=== PATIENT | female | born 1980 | race African-American/Black ===

== ENCOUNTER 2017-02-18 20:45 | Emergency (ER) | payer OTHER ==
[~2017-02-18] VITALS: Ht 157.5 cm; Wt 71.7 kg
[2017-02-19 00:41] VITALS: BP 120/70
[2017-02-19] MEDS ORDERED: KETOROLAC TROMETH 60MG/2ML VIAL IM ONE (01:00)
== END 2017-02-19 01:44 | disposition home or self-care (01) ==
LOC: EDBD 20:48 → ER 20:48
DX: M54.31 Sciatica, right side (principal); E11.9 Type 2 diabetes mellitus without complications; E07.89 Other specified disorders of thyroid
CPT/HCPCS: 72100; 96372; 99284; J1885

== ENCOUNTER 2017-02-19 12:27 | Emergency (ER) | payer OTHER ==
[~2017-02-19] VITALS: Ht 157.5 cm; Wt 71.7 kg
[2017-02-19 13:47] VITALS: BP 101/68
== END 2017-02-19 14:27 | disposition home or self-care (01) ==
LOC: ER 12:36
DX: G89.29 Other chronic pain (principal); M54.5 Low back pain; E11.9 Type 2 diabetes mellitus without complications; E07.89 Other specified disorders of thyroid; F17.210 Nicotine dependence, cigarettes, uncomplicated; Z76.0 Encounter for issue of repeat prescription

== ENCOUNTER 2017-05-07 06:46 | Emergency (ER) | payer MEDICAID, OTHER ==
[~2017-05-07] VITALS: Ht 157.5 cm; Wt 73.5 kg
[2017-05-07 07:04] VITALS: BP 128/79
[2017-05-07] MEDS ORDERED: KETOROLAC TROMETH 60MG/2ML VIAL IM ONE (08:00)
== END 2017-05-07 08:24 | disposition home or self-care (01) ==
LOC: ER 06:46
DX: M10.079 Idiopathic gout, unspecified ankle and foot (principal); E11.9 Type 2 diabetes mellitus without complications; E07.9 Disorder of thyroid, unspecified; F17.210 Nicotine dependence, cigarettes, uncomplicated
CPT/HCPCS: 73630; 96372; 99284; J1885

== ENCOUNTER 2018-11-12 16:51 | Emergency (ER) | payer MEDICAID, OTHER ==
[~2018-11-12] VITALS: Ht 157.5 cm; Wt 63.5 kg
[2018-11-12 17:06] VITALS: BP 124/80
== END 2018-11-12 23:45 | disposition home or self-care (01) ==
LOC: ER 16:51
DX: S61.412A Laceration without foreign body of left hand, initial encounter (principal); J06.9 Acute upper respiratory infection, unspecified; E11.9 Type 2 diabetes mellitus without complications; F17.210 Nicotine dependence, cigarettes, uncomplicated; W26.0XXA Contact with knife, initial encounter; Y93.89 Activity, other specified; Y99.8 Other external cause status; Y92.89 Other specified places as the place of occurrence of the external cause
CPT/HCPCS: 12001

== ENCOUNTER 2018-11-28 07:15 | Emergency (ER) | payer SELFPAY ==
[~2018-11-28] VITALS: Ht 157.5 cm; Wt 67.1 kg
[2018-11-28 07:54] VITALS: BP 135/80
== END 2018-11-28 08:33 | disposition home or self-care (01) ==
LOC: ER 07:15
DX: S61.512D Laceration without foreign body of left wrist, subsequent encounter (principal); E11.9 Type 2 diabetes mellitus without complications; E07.89 Other specified disorders of thyroid; X58.XXXD Exposure to other specified factors, subsequent encounter

== ENCOUNTER 2019-02-15 17:24 | Inpatient (IN) | payer SELFPAY ==
[~2019-02-15] VITALS: Ht 160 cm; Wt 68.5 kg
[2019-02-15] MEDS ORDERED: MORPHINE SULF INJ 2 MG/ML SYRINGE 1ML ONE (18:26)
[2019-02-15] MEDS ORDERED: ONDANSETRON HCL 4 MG/2 ML VIAL ONE (18:26)
[2019-02-15] MEDS ORDERED: SODIUM CHLORIDE 0.9% 1,000 ML IV ONE (18:30)
[2019-02-15] MEDS ORDERED: MORPHINE SULF INJ 2 MG/ML SYRINGE 1ML IV ONE ×2 (18:30→20:15)
[2019-02-15] MEDS ORDERED: ONDANSETRON HCL 4 MG/2 ML VIAL IV ONE (18:30)
[2019-02-15] MEDS ORDERED: SODIUM CHLORIDE 0.9% 500 ML IV ONE (19:06)
[2019-02-15 19:12] LABS: Basophils # (auto) 0.1 uL; Basophils % (auto) 0.3 % (0.0-2.0); Eosinophils # (auto) 0 uL; Hematocrit 41.9 % (36.0-46.0); Hemoglobin 14.1 g/dL (12.2-16.2); Lymphocytes # (auto) 1.1 uL; Lymphocytes % (auto) 5.2 % (10.0-50.0); Mean Corpuscular Hemoglobin 28.4 pg (28.0-32.0); Mean Corpuscular Hgb Conc. 33.5 g/dL (32.0-36.0); Mean Corpuscular Volume 84.7 fL (80.0-100.0); Monocytes # (auto) 1.9 uL; Neutrophils # (auto) 18.2 uL; Neutrophils % (auto) 85.5 % (37.0-80.0); Platelet Count (auto) 421 10^3/uL (140-450); Red Blood Cells 4.95 10^6/uL (4.0-5.20); Red Cell Distribution Width 13.3 % (11.8-14.3); White Blood Cell 21.3 10^3/uL (4.4-10.8)
[2019-02-15 19:18] LABS: Alanine Aminotransferase 16 U/L (13-56); Albumin 3.1 g/dL (3.4-5.0); Anion Gap 16 (5-15); Aspartate Aminotransferase 14 U/L (15-37); BUN/Creatinine Ratio 8.1; Blood Urea Nitrogen 24 mg/dL (7-18); Calcium 9.5 mg/dL (8.5-10.1); Carbon Dioxide 22 mmol/L (21-32); Chloride 96 mmol/L (98-107); GFR African American 22 mL/min; GFR Non-African American 19 mL/min; Glucose 107 mg/dL (74-106); Sodium 134 mmol/L (136-145)
[2019-02-15 19:19] LABS: Lactic Acid w/Reflex 4.5 mmol/L (0.4-2.0)
[2019-02-15 19:22] LABS: Alkaline Phosphatase 160 U/L (45-117); Bilirubin, Total 0.4 mg/dL (0.2-1.0); Total Protein 10.3 g/dL (6.4-8.2)
[2019-02-15] MEDS ORDERED: CLINDAMYCIN 600MG IV 50 ML IV ONE (19:45)
[2019-02-15] MEDS ORDERED: NEOMYCIN-BACITRACIN-POLYM 15GM TOP OINT TOP ONE (19:45)
[2019-02-15 20:18] LABS: Potassium 2.8 mmol/L (3.5-5.1)
[2019-02-15] MEDS ORDERED: POTASSIUM CHL 20 Meq TABLET PO ONE (20:30)
[2019-02-15] MEDS ORDERED: cefTRIAXone 1GM/50ML D5W 50 ML IV ONE (20:30)
[2019-02-15] MEDS: POTASSIUM CHL 20MEQ/100ML 100 ML IV SCH ×2 (21:27→23:03)
[2019-02-15 21:32] LABS: Urine Bacteria FEW /hpf (None Seen); Urine Blood 2+ /uL (Negative); Urine Specific Gravity 1.019 (1.001-1.035); Urine WBC 290 /hpf (0 - 5); Urine WBC Clumps PRESENT /hpf (None Seen)
[2019-02-15] MEDS ORDERED: DEXTROSE (50%) 50ML SYRG IV PRN (22:45)
[2019-02-15] MEDS ORDERED: ACETAMINOPHEN 325 MG TAB PO PRN (22:45)
[2019-02-15] MEDS: SODIUM CHLORIDE 0.9% 1,000 ML IV SCH (22:54)
[2019-02-15] MEDS: ONDANSETRON HCL 4 MG/2 ML VIAL IV PRN (23:17)
--- NOTE | 2019-02-15 23:25 | NUR ---
MS admit from ER [facility], A/ O x 4 admitted to [facility] after SBAR received, on room air with even and unlabored breathing, PIV patent and intact infusing 2nd bag of KCL to consume and discontinue. Patient oriented to Judith Ortega, primary RN, unit, room, bed, and unit policies regarding patient care and visiting hours. Patient weighed by bedscale and encouraged to call if she needs something. All questions and concerns addressed, patient verbalized understanding. Note:
[2019-02-16] VITALS (7 sets, daily range): BP systolic 99–110; BP diastolic 52–64
[2019-02-16] MEDS: ACCU-CHEK COMFORT CURVE STRIP VI SCH ×5 (00:15→23:17)
[2019-02-16] MEDS ORDERED: INSLANTI SC ×2 (00:39)
[2019-02-16] MEDS ORDERED: METF-370 PO (00:39)
[2019-02-16] MEDS: HYDROcodone-ACET 5/325MG TAB PO PRN ×4 (01:35→16:16)
--- NOTE | 2019-02-16 01:35 | NUR ---
C/O LEFT HAND PAIN, SCALE 10/10. NORCO 5 MG PO GIVEN ORDERED PRN.
[2019-02-16] MEDS: ONDANSETRON HCL 4 MG/2 ML VIAL IV PRN ×2 (03:41→12:00)
[2019-02-16] MEDS: InsuLIN REG 1unit/0.01ml Soln (100units/ml) SC SCH ×5 (06:00→23:16)
[2019-02-16 06:35] LABS: Basophils # (auto) 0.1 uL; Basophils % (auto) 0.3 % (0.0-2.0); Eosinophils # (auto) 0 uL; Eosinophils % (auto) 0.1 % (0.0-7.0); Hematocrit 34.7 % (36.0-46.0); Hemoglobin 11.4 g/dL (12.2-16.2); Lymphocytes # (auto) 0.8 uL; Lymphocytes % (auto) 4.5 % (10.0-50.0); Mean Corpuscular Hemoglobin 27.5 pg (28.0-32.0); Mean Corpuscular Hgb Conc. 32.8 g/dL (32.0-36.0); Mean Corpuscular Volume 83.8 fL (80.0-100.0); Monocytes # (auto) 1.8 uL; Monocytes % (auto) 10.3 % (0.0-12.0); Neutrophils % (auto) 84.8 % (37.0-80.0); Platelet Count (auto) 356 10^3/uL (140-450); Red Blood Cells 4.13 10^6/uL (4.0-5.20); White Blood Cell 17.7 10^3/uL (4.4-10.8)
[2019-02-16 06:41] LABS: BUN/Creatinine Ratio 11.5; Calcium 8.1 mg/dL (8.5-10.1); Potassium 3.9 mmol/L (3.5-5.1)
[2019-02-16] MEDS: CLINDAMYCIN 600MG IV 50 ML IV SCH ×3 (06:45→22:10)
[2019-02-16] MEDS: cefTRIAXone 1GM/50ML D5W 50 ML IV SCH (08:27)
[2019-02-16] MEDS: SODIUM CHLORIDE 0.9% 1,000 ML IV SCH ×2 (09:11→16:16)
[2019-02-16] MEDS ORDERED: NEOMYCIN-BACITRACIN-POLYM 15GM TOP OINT TOP SCH (10:00)
--- NOTE | 2019-02-16 19:10 | NUR ---
Opening Shift Note Assumed care of patient from day shift RN Isabel. Pt is asleep, respirations even equal and unlabored. No S/S of distress/SOB or pain. Safety maintained with bed rails upx2, locked and in lowest position with call plata within reach. Instructed on POC and to call for assist PRN, will continue to monitor for changes Q1hr and PRN.
--- NOTE | 2019-02-16 22:10 | NUR ---
COOLING MEASURES TEMP 100.4 F. REMOVED SOME BLANKETS FROM PATIENT, APPLIED ICE PACKS, ADMINISTERED PRN TYLENOL. NO S/S DISTRESS, WILL CONTINUE TO MONITOR.
--- NOTE | 2019-02-17 02:00 | NUR ---
PT FOUND WITH IV PULLED OUT Pt ambulated to bathroom, states "my IV just came out." Applied pressure to IV site and applied dressing, no bleeding noted. Catheter intact. No s/s distress. Addendum: 02/17/19 at 0208 by MANISHA JUAREZ RN RN RIGHT AC IV PULLED OUT. LEFT AC IV STILL INTACT AND PATENT.
[2019-02-17] MEDS: HYDROcodone-ACET 5/325MG TAB PO PRN ×3 (02:05→20:06)
--- NOTE | 2019-02-17 02:05 | NUR ---
Pt c/o burning when urinating Educated pt on importance of IV fluids and IV antibiotics to help with UTI which may be causing burning with urination. Pt verbalized understanding. Pt also complains of 10/10 hand pain, administered [place] PRN. No s/s distress, reassessment temp 98.4. Will continue to monitor.
[2019-02-17] MEDS: SODIUM CHLORIDE 0.9% 1,000 ML IV SCH (02:12)
[2019-02-17 05:42] VITALS: BP 126/68
[2019-02-17] MEDS: CLINDAMYCIN 600MG IV 50 ML IV SCH ×3 (05:45→22:01)
[2019-02-17] MEDS: ACCU-CHEK COMFORT CURVE STRIP VI SCH ×3 (05:45→17:59)
[2019-02-17] MEDS: InsuLIN REG 1unit/0.01ml Soln (100units/ml) SC SCH ×3 (05:45→17:59)
[2019-02-17 06:51] LABS: Basophils # (auto) 0.1 uL; Basophils % (auto) 0.7 % (0.0-2.0); Eosinophils # (auto) 0 uL; Eosinophils % (auto) 0.1 % (0.0-7.0); Hematocrit 31.3 % (36.0-46.0); Hemoglobin 10.3 g/dL (12.2-16.2); Lymphocytes # (auto) 1.8 uL; Lymphocytes % (auto) 9.5 % (10.0-50.0); Mean Corpuscular Hemoglobin 27.8 pg (28.0-32.0); Mean Corpuscular Hgb Conc. 32.9 g/dL (32.0-36.0); Mean Corpuscular Volume 84.4 fL (80.0-100.0); Monocytes # (auto) 2.7 uL; Monocytes % (auto) 14.1 % (0.0-12.0); Neutrophils # (auto) 14.2 uL; Neutrophils % (auto) 75.6 % (37.0-80.0); Platelet Count (auto) 349 10^3/uL (140-450); Red Blood Cells 3.71 10^6/uL (4.0-5.20); White Blood Cell 18.8 10^3/uL (4.4-10.8)
--- NOTE | 2019-02-17 07:15 | NUR ---
Closing Shift Note Endorsed care to day shift RN Summer. Pt resting in bed, no s/s distress.
--- NOTE | 2019-02-17 07:16 | NUR ---
Opening Note Received report from shift supervisor rn RN. Patient is awake, alert and oriented x4. No signs or symptoms of distress noted at this time. Patient is on room air, respirations even and unlabored. Reviewed plan of care with patient, patient verbalized understanding. Bed in low and locked position, call light within reach. Will continue to monitor Q1 hour and PRN.
[2019-02-17 07:20] LABS: Sodium 132 mmol/L (136-145)
[2019-02-17 07:21] LABS: Chloride 101 mmol/L (98-107)
[2019-02-17 07:22] LABS: Anion Gap 6 (5-15); BUN/Creatinine Ratio 17.3; Blood Urea Nitrogen 18 mg/dL (7-18); Carbon Dioxide 25 mmol/L (21-32); GFR African American 75 mL/min; GFR Non-African American 62 mL/min; Glucose 96 mg/dL (74-106)
[2019-02-17 07:23] LABS: Calcium 8.1 mg/dL (8.5-10.1); Cholesterol 113 mg/dL (< 200); HDL Cholesterol 19 mg/dL (40-59); LDL Cholesterol 67 mg/dL (< 100); Magnesium 1.9 mg/dL (1.6-2.6); Triglycerides 151 mg/dL (< 150)
[2019-02-17] MEDS: cefTRIAXone 1GM/50ML D5W 50 ML IV SCH (08:50)
--- NOTE | 2019-02-17 08:50 | NUR ---
AMA to Smoke AMA to Smoke signed by patient and placed in the chart.
[2019-02-17 09:00] VITALS: BP 110/62
--- NOTE | 2019-02-17 11:42 | NUR ---
IV REMOVED IV removed with clean sterile technique, catheter fully intact. Pressure dressing applied to site. Patient tolerated well.
--- NOTE | 2019-02-17 11:46 | NUR ---
IV INSERTION IV access obtained, via clean sterile technique by inserting 22 gauge catheter in right forearm after one attempt. IV secured properly. No trauma to site. Patient tolerated well.
--- NOTE | 2019-02-17 12:15 | NUR ---
Urine Sample Urine Sample collected and sent to lab
[2019-02-17 12:49] LABS: Protein, Urine 160.6 mg/dL (0.0-11.9)
[2019-02-17 12:51] LABS: Alcohol, Urine < 3.0 mg/dL (0-5); Amphetamine Screen, Urine NEGATIVE (NEGATIVE); Barbiturate Scree,Urine NEGATIVE (NEGATIVE); Benzodiazephine Screen, Urine NEGATIVE (NEGATIVE); Cannabinoid Screen, Urine POSITIVE (NEGATIVE); Cocaine Screen, Urine NEGATIVE (NEGATIVE); Opiate Scree,Urine POSITIVE (NEGATIVE); Phencyclidine Screen, Urine NEGATIVE (NEGATIVE)
[2019-02-17 13:00] VITALS: BP 118/79
[2019-02-17 17:00] VITALS: BP 137/87
--- NOTE | 2019-02-17 18:00 | NUR ---
Patient off unit Patient off unit, outside to smoke
--- NOTE | 2019-02-17 19:20 | NUR ---
Closing Note Report given to manufacturing supervisor 2nd shift. No signs or symptoms of distress noted at this time. Patient resting in bed with eyes closed.
[2019-02-17 22:00] VITALS: BP 136/74
[2019-02-17] MEDS: TEMAZEPAM 15 MG CAP PO PRN (22:06)
[2019-02-18] MEDS: HYDROcodone-ACET 5/325MG TAB PO PRN ×4 (00:16→19:32)
[2019-02-18] MEDS: ACCU-CHEK COMFORT CURVE STRIP VI SCH ×5 (00:21→23:41)
[2019-02-18] MEDS: InsuLIN REG 1unit/0.01ml Soln (100units/ml) SC SCH ×4 (00:21→18:00)
[2019-02-18 05:00] VITALS: BP 114/75
[2019-02-18] MEDS: CLINDAMYCIN 600MG IV 50 ML IV SCH ×3 (06:10→22:13)
[2019-02-18 06:20] LABS: Hematocrit 33.6 % (36.0-46.0); Hemoglobin 11.1 g/dL (12.2-16.2); Mean Corpuscular Hemoglobin 27.6 pg (28.0-32.0); Mean Corpuscular Hgb Conc. 32.9 g/dL (32.0-36.0); Mean Corpuscular Volume 83.8 fL (80.0-100.0); Platelet Count (auto) 389 10^3/uL (140-450); Red Blood Cells 4.01 10^6/uL (4.0-5.20); White Blood Cell 11.8 10^3/uL (4.4-10.8)
[2019-02-18 06:25] LABS: Basophils % (manual) 0 (0.0-2.0); Blast Cells 0; Metamyelocytes % 0; Myelocytes % 0; Promyelocytes % 0
[2019-02-18 06:35] LABS: Albumin 1.9 g/dL (3.4-5.0); Calcium 8.2 mg/dL (8.5-10.1)
[2019-02-18 06:38] LABS: BUN/Creatinine Ratio 16.7; Bilirubin, Total 0.2 mg/dL (0.2-1.0); Phosphorus 3.5 mg/dL (2.5-4.90); Total Protein 7.4 g/dL (6.4-8.2)
--- NOTE | 2019-02-18 06:44 | NUR ---
CLOSING NOTE: PATIENT'S BILATERAL HANDS AND LABIAL PAIN HAS IMPROVED PER PT. BLOOD SUGAR IS WNL THIS MORNING, AMBULATES WITHOUT DIFFICULTY, CURRENTLY ON IV ANTIBIOTICS.
--- NOTE | 2019-02-18 07:30 | NUR ---
Opening Shift Note Assumed care of patient, awake and alert. No S/S of distress/SOB or pain. Instructed on POC and to call for assist PRN, will continue to monitor for changes Q1hr and PRN. Patient states she's getting ready "to go outside" pt encouraged to stop smokinh but she refused. Cont care
[2019-02-18 08:00] LABS: Band Neutrophils % (manual) 1; Eosinophils % (manual) 1 (0-7); Lymphocytes % (manual) 11 (10.0-50.0); Monocytes % (manual) 11 (0-12); Reactive Lymphocytes 1
--- NOTE | 2019-02-18 08:22 | NUR ---
Patient back from smoking no distress noted
[2019-02-18 09:00] VITALS: BP 129/82
[2019-02-18] MEDS ORDERED: INSULIN LANTUS (GLARGINE) 1 /0.01ml (100units/ml) SC ONE (10:45)
[2019-02-18] MEDS: cefTRIAXone 1GM/50ML D5W 50 ML IV SCH (10:58)
--- NOTE | 2019-02-18 11:16 | NUR ---
Patient out to smoke encouraged to stay and quit smoking but refused. Patient aware of risks of going out to smoke including and not limited to . Patient accompanied by family member. No distress on departure noted.
[2019-02-18 13:00] VITALS: BP 143/81
[2019-02-18 17:00] VITALS: BP 116/65
--- NOTE | 2019-02-18 19:00 | NUR ---
PATIENT CARE ENDORSED ENDORSED CARE TO THELMA SCHNEIDER, PATIENT NOTED WALKING OUT TO SMOKE ACCOMPANIED BY FAMILY MEMBER. NO DISTRESS NOTED
[2019-02-18] MEDS: TEMAZEPAM 15 MG CAP PO PRN (19:32)
[2019-02-18 22:03] VITALS: BP 132/77
[2019-02-19] MEDS: InsuLIN REG 1unit/0.01ml Soln (100units/ml) SC SCH ×4 (00:12→17:44)
[2019-02-19 05:20] VITALS: BP 118/62
[2019-02-19] MEDS: CLINDAMYCIN 600MG IV 50 ML IV SCH ×3 (05:26→21:27)
[2019-02-19] MEDS: ACCU-CHEK COMFORT CURVE STRIP VI SCH ×3 (05:31→17:44)
--- NOTE | 2019-02-19 06:29 | NUR ---
CLOSING NOTE Patient still c/o bilateral hands and labial pain, given norco once the last 12 hours, slept well, on IV antibiotics, afebrile, ambulatory, blood sugar is 98 this morning.
[2019-02-19] MEDS: INSULIN LANTUS (GLARGINE) 1 /0.01ml (100units/ml) SC SCH (06:38)
[2019-02-19] MEDS: HYDROcodone-ACET 5/325MG TAB PO PRN ×4 (06:38→21:27)
[2019-02-19 09:00] VITALS: BP 120/70
--- NOTE | 2019-02-19 09:30 | NUR ---
patient off unit to smoke AMA to smoke in hard chart
[2019-02-19] MEDS: cefTRIAXone 1GM/50ML D5W 50 ML IV SCH (09:55)
[2019-02-19] MEDS: LISINOPRIL 5 MG TAB PO SCH (09:56)
--- NOTE | 2019-02-19 12:00 | NUR ---
patient off unit to smoke AMA to smoke in hard chart
--- NOTE | 2019-02-19 12:03 | NUR ---
Nutrition Assessment Notes please see attached link for complete assessment Est. Needs BW [id number] kcal (23-25 kcal/kgBW), 67-87 gms pro (1.0-1.3 gms/kgBW r/t severe hypoalb). Will continue to monitor pertinent labs and reassess nutrient need prn Addendum: 02/19/19 at [address] Amended: Links added.
[2019-02-19 13:00] VITALS: BP 126/70
--- NOTE | 2019-02-19 17:00 | NUR ---
patient off unit to smoke AMA to smoke in hard chart
--- NOTE | 2019-02-19 17:00 | NUR ---
PT WAS OUT OF THE ROOM FOR 1700 VITALS
--- NOTE | 2019-02-19 17:24 | NUR ---
Patient in tears, states 10/10 head pain after returning from smoking a cigarette. Blood glucose 151 Blood pressure 137/81 mmHG Heart rate 101 Patient able to smile without deficit observed, speech is clear, arms have equal strength bilaterally Paged Dr. Sierra to inform M.D of patient's condition Medicated patient with [facility] per EMAR/ [place] order
--- NOTE | 2019-02-19 17:41 | NUR ---
IV removal IV DC'd from right AC with clean sterile technique, catheter fully intact. Pressure dressing applied to site. Patient tolerated well.
--- NOTE | 2019-02-19 18:15 | NUR ---
IV insertion IV access obtained, via clean sterile technique by inserting 22 gauge catheter at NATALIE after 1 attempt. IV secured properly. No trauma to site. Patient tolerated well.
[2019-02-19] MEDS: TEMAZEPAM 15 MG CAP PO PRN (21:26)
[2019-02-19 22:03] VITALS: BP 133/75
[2019-02-20] MEDS: CLINDAMYCIN 600MG IV 50 ML IV SCH ×2 (05:11→14:28)
[2019-02-20] MEDS: InsuLIN REG 1unit/0.01ml Soln (100units/ml) SC SCH ×3 (05:11→11:59)
[2019-02-20] MEDS: ACCU-CHEK COMFORT CURVE STRIP VI SCH ×3 (05:11→11:59)
[2019-02-20 05:39] VITALS: BP 130/73
[2019-02-20] MEDS: INSULIN LANTUS (GLARGINE) 1 /0.01ml (100units/ml) SC SCH (06:45)
--- NOTE | 2019-02-20 07:45 | NUR ---
RECEIVED PATIENT ALERT AND ORIENTED X4, NOT IN DISTRESS, DEEP BREATHING AND COUGHING WAS ENCOURAGED, DEMONSTRATED AND TOLERATED WELL, CLEAR LUNG SOUNDS IN BILATERAL LUNG LOBES, RR=18 SAT=98% IN RA, HEART R=82, DENIED SOB AND CHEST PAIN, ABDOMEN SOFT WITH ACTIVE BS, LAST BM=01/19/19 REPORTED, C/O GENERALIZED WEAKNESS AND JOINT PAIN L=12/27 AT THIS MOMENT, SKIN INTACT WARM TO TOUCH, LT. LABIA WOUND IS HEALING REPORTED AND REFUSED ASSESSMENT AT THIS MOMENT, GENERAL SKIN DRY AND INTACT WARM TO TOUCH, RADIAL AND PEDAL PULSES PALPABLE, CAP REFILL <3 SECONDS, RESTING AND SLEEPING ON BED, HEAD OF BED ELEVATED, BED ON LOW POSITION, RAILS UP X2, CALL LIGHT ON REACH, WILL CONTINUE MONITORING.
[2019-02-20 08:33] VITALS: BP 110/58
[2019-02-20] MEDS: cefTRIAXone 1GM/50ML D5W 50 ML IV SCH (09:47)
[2019-02-20] MEDS: LISINOPRIL 5 MG TAB PO SCH (09:48)
[2019-02-20] MEDS: HYDROcodone-ACET 5/325MG TAB PO PRN (09:49)
[2019-02-20] MEDS ORDERED: Pro-Stat SF 30ml Vanilla PO SCH (10:00)
--- NOTE | 2019-02-20 10:00 | NUR ---
LT. LABIA VAGINAL WOUND WAS CLEANED AND KEEP DRY, TOLERATED WELL, OUT OF THE UNIT FOR SMOKING, AMA FOR SMOKING ON CHART.
[2019-02-20 11:57] VITALS: BP 130/73
[2019-02-20 13:00] VITALS: BP 131/84
--- NOTE | 2019-02-20 14:35 | NUR ---
TOLERATING DIET WELL, DENIED PAIN, AMBULATED OUT OF THE UNIT FOR SMOKING, TOLERATING WELL, PENDING D/C HOME TODAY, WILL CONTINUE MONITORING.
--- NOTE | 2019-02-20 15:21 | NUR ---
D/C INSTRUCTIONS WERE GIVEN, MEDICATION PRESCRIPTION INFORMATION AND EDUCATION PROVIDED, VERBALIZED UNDERSTANDING, FOLLOW UP WITH [facility] [place] [address] [facility] [address] [place] PHONE # [phone] EXT [phone] WAS GIVEN, [facility] ON [phone] [facility] [place], [place] [facility] [phone] [address], [place] INFORMATION PROVIDED, VERBALIZED UNDERSTANDING, D/C IV SITE, TOLERATED WELL, VS T=97.6 RR=18 SAT=97% ND=059/82, WC WAS PROVIDED, D/C HOME WALKING, TOOK ALL BELONGINGS AND LEFT NOTING BEHIND.
== END 2019-02-20 15:30 | disposition home or self-care (01) | DRG 871 ==
LOC: ER 17:24 → OVERFLOW 22:43 → EAST 23:28
PROVIDERS: ADMIT Nurse Practitioner; ATTEND Internal Medicine
DX: A41.9 Sepsis, unspecified organism (principal); N17.0 Acute kidney failure with tubular necrosis; E44.1 Mild protein-calorie malnutrition; J98.11 Atelectasis; D17.71 Benign lipomatous neoplasm of kidney; D25.9 Leiomyoma of uterus, unspecified; E03.9 Hypothyroidism, unspecified; E11.21 Type 2 diabetes mellitus with diabetic nephropathy; E11.22 Type 2 diabetes mellitus with diabetic chronic kidney disease; S31.41XA Laceration without foreign body of vagina and vulva, initial encounter; N18.9 Chronic kidney disease, unspecified; N83.209 Unspecified ovarian cyst, unspecified side; N76.2 Acute vulvitis; E11.65 Type 2 diabetes mellitus with hyperglycemia; E87.6 Hypokalemia; F12.90 Cannabis use, unspecified, uncomplicated; F17.210 Nicotine dependence, cigarettes, uncomplicated; S30.814A Abrasion of vagina and vulva, initial encounter; X58.XXXA Exposure to other specified factors, initial encounter; Y93.89 Activity, other specified; Y92.89 Other specified places as the place of occurrence of the external cause; Y99.8 Other external cause status; Z68.26 Body mass index [BMI] 26.0-26.9, adult; Z79.899 Other long term (current) drug therapy
CPT/HCPCS: 36415; 71045; 73130; 74176; 76856; 80048; 80053; 80061; 80307; 81001; 82570; 82962; 83036; 83605; 83735; 84100; 84156; 84300; 84443; 84484; 84702; 85007; 85025; 85027; 85652; 86141; 86431; 87040; 87086; 93005; 94761; 96361; 96365; 96367; 96375; G0378; J0696; J1815; J2405; J3480; J3490

== ENCOUNTER 2020-09-26 10:01 | Emergency (ER) | payer OTHER, SELFPAY ==
[~2020-09-26] VITALS: Ht 157.5 cm; Wt 61.2 kg
[~2020-09-26 10:01] MED LIST: INSLANTI SC; METF-370 PO
[2020-09-26 11:12] LABS: Basophils # (auto) 0.2 10 ^3/uL (0-0.2); Eosinophils # (auto) 0.1 10 ^3/uL (0-0.8); Lymphocytes # (auto) 2.5 10 ^3/uL (0.4-5.4); Monocytes # (auto) 0.9 10 ^3/uL (0-1.3); Nucleated Red Blood Cells % 0.1 %
[2020-09-26 11:14] LABS: Basophils % (auto) 1.8 % (0.0-2.0); Eosinophils % (auto) 0.5 % (0.0-7.0); Hematocrit 35.6 % (36.0-46.0); Hemoglobin 11.8 g/dL (12.2-16.2); Lymphocytes % (auto) 23.3 % (10.0-50.0); Mean Corpuscular Hemoglobin 26.8 pg (28.0-32.0); Mean Corpuscular Volume 81.2 fL (80.0-100.0); Monocytes % (auto) 8.3 % (0.0-12.0); Neutrophils # (auto) 7.2 10 ^3/uL (1.6-8.6); Neutrophils % (auto) 66.1 % (37.0-80.0); Red Blood Cells 4.38 10^6/uL (4.0-5.20); Red Cell Distribution Width 14.4 % (11.8-14.3); White Blood Cell 10.9 10^3/uL (4.4-10.8)
[2020-09-26 11:23] LABS: Albumin 2.1 g/dL (3.4-5.0); Anion Gap 3 (5-15); Calcium 8.5 mg/dL (8.5-10.1); Carbon Dioxide 27 mmol/L (21-32); Chloride 97 mmol/L (98-107); Potassium 4.2 mmol/L (3.5-5.1); Sodium 127 mmol/L (136-145)
[2020-09-26 11:30] LABS: Alanine Aminotransferase 12 U/L (13-56); Alkaline Phosphatase 204 U/L (45-117); Aspartate Aminotransferase 13 U/L (15-37); BUN/Creatinine Ratio 15.5; Bilirubin, Total 0.2 mg/dL (0.2-1.0); Blood Urea Nitrogen 17 mg/dL (7-18); GFR African American 70 mL/min; GFR Non-African American 58 mL/min; Total Protein 8.7 g/dL (6.4-8.2)
[2020-09-26 11:36] LABS: Glucose 411 mg/dL (74-106)
[2020-09-26] MEDS ORDERED: InsuLIN REG 1unit/0.01ml Soln (100units/ml) IV ONE (13:30)
[2020-09-26] MEDS ORDERED: AZITHROMYCIN 500MG/ 250ML 250 ML IV ONE (13:30)
[2020-09-26] MEDS ORDERED: SODIUM CHLORIDE 0.9% 1,000 ML IV ONE (13:30)
[2020-09-26] MEDS ORDERED: cefTRIAXone 1GM/50ML D5W 50 ML IV ONE (13:30)
[2020-09-26 21:36] VITALS: BP 90/59
== END 2020-09-26 17:30 | disposition home or self-care (01) ==
LOC: ER 10:01
DX: G51.0 Bell's palsy (principal); F17.210 Nicotine dependence, cigarettes, uncomplicated; E11.9 Type 2 diabetes mellitus without complications; F12.10 Cannabis abuse, uncomplicated; Z20.828 Contact with and (suspected) exposure to other viral communicable diseases
CPT/HCPCS: 36415; 70450; 71045; 80053; 82962; 84484; 85025; 93005; 96365; 96366; 96367; 96375; 99285; J0456; J0696; J7030

== ENCOUNTER 2021-02-01 18:24 | Emergency (ER) | payer MEDICAID, OTHER ==
[~2021-02-01] VITALS: Ht 157.5 cm; Wt 63.5 kg
[2021-02-01 18:26] VITALS: BP 122/73
== END 2021-02-01 22:45 | disposition home or self-care (01) ==
LOC: ER 18:25
DX: M79.674 Pain in right toe(s) (principal); F17.210 Nicotine dependence, cigarettes, uncomplicated; F12.10 Cannabis abuse, uncomplicated; E11.9 Type 2 diabetes mellitus without complications
CPT/HCPCS: 73700

== ENCOUNTER 2021-02-08 17:49 | Emergency (ER) | payer MEDICAID ==
[~2021-02-08] VITALS: Ht 157.5 cm; Wt 66.3 kg
[2021-02-08 18:07] VITALS: BP 99/63
== END 2021-02-08 23:20 | disposition home or self-care (01) ==
LOC: ER 17:49
DX: S93.104A Unspecified dislocation of right toe(s), initial encounter (principal); E11.9 Type 2 diabetes mellitus without complications; F17.210 Nicotine dependence, cigarettes, uncomplicated; Z79.4 Long term (current) use of insulin; Z79.899 Other long term (current) drug therapy; X58.XXXA Exposure to other specified factors, initial encounter; Y93.89 Activity, other specified; Y92.89 Other specified places as the place of occurrence of the external cause; Y99.8 Other external cause status
CPT/HCPCS: 73700

== ENCOUNTER 2021-03-07 08:07 | Emergency (ER) | payer MEDICAID ==
[~2021-03-07] VITALS: Ht 157.5 cm; Wt 63.5 kg
[2021-03-07 10:09] LABS: Basophils # (auto) 0.1 10 ^3/uL (0-0.2); Eosinophils # (auto) 0.3 10 ^3/uL (0-0.8); Platelet Count (auto) 441 10^3/uL (140-450); Red Blood Cells 3.64 10^6/uL (4.0-5.20)
[2021-03-07 10:11] LABS: Basophils % (auto) 0.6 % (0.0-2.0); Eosinophils % (auto) 2.1 % (0.0-7.0); Hemoglobin 9.8 g/dL (12.2-16.2); Lymphocytes # (auto) 2.1 10 ^3/uL (0.4-5.4); Lymphocytes % (auto) 17.5 % (10.0-50.0); Mean Corpuscular Hgb Conc. 33.8 g/dL (32.0-36.0); Mean Corpuscular Volume 79.7 fL (80.0-100.0); Monocytes # (auto) 1.1 10 ^3/uL (0-1.3); Monocytes % (auto) 9.1 % (0.0-12.0); Neutrophils # (auto) 8.7 10 ^3/uL (1.6-8.6); Neutrophils % (auto) 70.7 % (37.0-80.0); Red Cell Distribution Width 15.8 % (11.8-14.3); White Blood Cell 12.3 10^3/uL (4.4-10.8)
[2021-03-07 10:24] LABS: Albumin 2.1 g/dL (3.4-5.0); Calcium 8.1 mg/dL (8.5-10.1); Potassium 4.3 mmol/L (3.5-5.1)
[2021-03-07 10:27] LABS: BUN/Creatinine Ratio 22.1; Bilirubin, Total 0.3 mg/dL (0.2-1.0); Total Protein 7.9 g/dL (6.4-8.2)
[2021-03-07] MEDS ORDERED: SODIUM CHLORIDE 0.9% 1,000 ML IVB ONE (11:45)
[2021-03-07 12:16] LABS: INR 0.96 (0.9-1.15); Partial Thromboplastin Time 28.5 sec (23.0-31.2)
[2021-03-07] MEDS ORDERED: CLINDAMYCIN 600MG IV 50 ML IV ONE (12:30)
[2021-03-07] MEDS ORDERED: DEXTROSE (50%) 50ML SYRG IV PRN (14:15)
[2021-03-07] MEDS ORDERED: SODIUM CHLORIDE 0.9% 1,000 ML IV ONE (14:15)
[2021-03-07] MEDS ORDERED: VANCOMYCIN PER PHARMACY 0 MG IV SCH (14:15)
[2021-03-07] MEDS ORDERED: VANCOMYCIN 1GM/250ML 250 ML IV ONE (14:15)
[2021-03-07] MEDS: PIPERACILLIN-TAZOB 3.375GM 100 ML IV SCH (18:59)
[2021-03-07] MEDS: ACCU-CHEK COMFORT CURVE STRIP VI SCH ×2 (18:59→22:42)
[2021-03-07] MEDS: InsuLIN REG 1unit/0.01ml Soln (100units/ml) SC SCH ×2 (19:04→22:57)
[2021-03-07] MEDS ORDERED: HYDROcodone-ACET 10/325MG TAB PO ONE (21:00)
[2021-03-08] MEDS: PIPERACILLIN-TAZOB 3.375GM 100 ML IV SCH (00:25)
[2021-03-08 00:45] VITALS: BP 123/71
[2021-03-08] MEDS ORDERED: VANCOMYCIN 1GM/250ML 250 ML IV SCH (09:00)
== END 2021-03-08 01:45 | disposition short-term general hospital (02) ==
LOC: ER 08:07
DX: L03.115 Cellulitis of right lower limb (principal); D50.9 Iron deficiency anemia, unspecified; I77.1 Stricture of artery; I96 Gangrene, not elsewhere classified; F17.210 Nicotine dependence, cigarettes, uncomplicated; F12.10 Cannabis abuse, uncomplicated
CPT/HCPCS: 36415; 73700; 80053; 82962; 83735; 85025; 85610; 85730; 87426; 93926; 93971; 96365; 96366; 96368; 96372; 99285; J1815; J2543; J3370; J7030; J3490

== ENCOUNTER 2021-10-05 18:32 | Emergency (ER) | payer MEDICAID ==
[~2021-10-05] VITALS: Ht 157.5 cm; Wt 90.7 kg
[2021-10-05 22:01] LABS: Hemoglobin 8.4 g/dL (12.2-16.2)
[2021-10-05 22:06] LABS: Hematocrit 26.4 % (36.0-46.0); Mean Corpuscular Hemoglobin 22.5 pg (28.0-32.0); Mean Corpuscular Hgb Conc. 31.9 g/dL (32.0-36.0); Mean Corpuscular Volume 70.7 fL (80.0-100.0); Red Blood Cells 3.74 10^6/uL (4.0-5.20); Red Cell Distribution Width 18.6 % (11.8-14.3); White Blood Cell 8.9 10^3/uL (4.4-10.8)
[2021-10-05 22:09] LABS: Basophils % (manual) 0 (0.0-2.0); Blast Cells 0; Metamyelocytes % 0; Myelocytes % 0; Promyelocytes % 0; Reactive Lymphocytes 0
[2021-10-05 22:23] LABS: Albumin 1.5 g/dL (3.4-5.0); Calcium 7.5 mg/dL (8.5-10.1); Magnesium 1.8 mg/dL (1.6-2.6); Potassium 4.1 mmol/L (3.5-5.1)
[2021-10-05 22:36] LABS: BUN/Creatinine Ratio 12.4; Bilirubin, Total 0.1 mg/dL (0.2-1.0); Total Protein 6.8 g/dL (6.4-8.2)
[2021-10-05 22:56] LABS: Band Neutrophils % (manual) 1; Eosinophils % (manual) 5 (0-7); Lymphocytes % (manual) 24 (10.0-50.0); Monocytes % (manual) 7 (0-12)
[2021-10-05 23:39] VITALS: BP 176/95
== END 2021-10-06 02:37 | disposition home or self-care (01) ==
LOC: ER 18:37
DX: R60.0 Localized edema (principal); R14.0 Abdominal distension (gaseous); R06.02 Shortness of breath; E03.9 Hypothyroidism, unspecified; E11.9 Type 2 diabetes mellitus without complications; Z87.891 Personal history of nicotine dependence; Z79.4 Long term (current) use of insulin; Z79.899 Other long term (current) drug therapy
CPT/HCPCS: 36415; 76830; 76856; 80053; 83735; 83880; 84484; 85007; 85027; 93005; 93970